=== PATIENT | male | born 1990 | race African-American/Black ===

== ENCOUNTER 2025-03-28 09:35 | Emergency (ER) | payer OTHER ==
[~2025-03-28] VITALS: Ht 190.5 cm; Wt 72.0 kg
[2025-03-28 10:19] LABS: BASO # 0.0 10^3/uL (0.0-0.2); BASO % 0.4 % (0.0-1.0); EOS # 0.0 10^3/uL (0.0-0.5); EOS % 0.6 % (0.0-3.0); LYMPH # 1.7 10^3/uL (1.5-5.0); LYMPH % 34.3 % (24.0-44.0); MONO # 0.4 10^3/uL (0.0-0.8); MONO % 8.5 % (2.0-8.0); NEUTROPHILS # 2.8 10^3/uL (1.5-8.5); NEUTROPHILS % 56.0 % (36.0-66.0); PLATELET COUNT, AUTOMATED 153 10^3/uL (150-450)
[2025-03-28] MEDS ORDERED: METO1TAB7 PO (10:21)
[2025-03-28] MEDS ORDERED: ELIQ5TAB PO (10:21)
[2025-03-28 10:42] LABS: INR 1.35
[2025-03-28 10:44] LABS: CK-MB VALUE MASS 4.5 NG/ML (<3.6)
[2025-03-28 10:45] LABS: ALT/SGPT 89.0 U/L (7.0-40); AST/SGOT 42.0 U/L (<34); CALCIUM LEVEL 8.7 MG/DL (8.5-10.1); CARBON DIOXIDE LEVEL 26.0 MMOL/L (20-31); CHLORIDE LEVEL 107.0 MMOL/L (98-107); CREATININE FOR GFR 1.16 MG/DL (0.70-1.30); GLOMERULAR FILTRATION RATE 85.3 (>60); MAGNESIUM LEVEL 2.0 MG/DL (1.8-2.4); POTASSIUM SERUM 4.5 MMOL/L (3.5-5.1); SODIUM LEVEL 141.0 MMOL/L (136-145)
[2025-03-28 10:46] LABS: CPK CREATINE PHOSPHOKINASE 190.0 U/L (46-171); MB/CK RELATIVE INDEX 2.36 (< OR =4)
[2025-03-28 10:47] LABS: FREE T4 0.99 NG/DL (0.89-1.76)
[2025-03-28] MEDS ORDERED: ISOVUE-370 76% 100 ML VIAL As Ordered ONE (11:01)
[2025-03-28 12:11] LABS: CK-MB VALUE MASS 3.7 NG/ML (<3.6)
[2025-03-28 12:12] LABS: CPK CREATINE PHOSPHOKINASE 183.0 U/L (46-171); MB/CK RELATIVE INDEX 2.02 (< OR =4)
[2025-03-28] MEDS: AMIODARONE HCL 150 MG in IV 1 EA IV SCH (13:17)
[2025-03-28] MEDS: ASPIRIN 81 MG CHEWABLE TABLET PO ONE (13:17)
[2025-03-28] MEDS: AMIODARONE HCL 360 MG in IV 1 EA IV SCH (13:38)
[2025-03-28] MEDS ORDERED: HOME MED LIST COMPLETE! XX SCH (13:40)
[2025-03-28 13:54] LABS: AMPHETAMINES LEVEL URINE NEGATIVE (NEGATIVE); BARBITURATES URINE NEGATIVE (NEGATIVE); CANNABINOIDS URINE NEGATIVE (NEGATIVE); COCAINE METABOLITE URINE NEGATIVE (NEGATIVE); METHADONE URINE NEGATIVE (NEGATIVE); OPIATES URINE NEGATIVE (NEGATIVE); PHENCYCLIDINE URINE NEGATIVE (NEGATIVE)
[2025-03-28 13:55] LABS: BENZODIAZEPINES URINE NEGATIVE (NEGATIVE)
[2025-03-28 13:58] LABS: KETONE, URINE AUTO RFX NEGATIVE (NEGATIVE); LEUKOCYTE ESTERASE UR AUTO RFX NEGATIVE (NEGATIVE); MUCUS, URINE RFX SMALL (NEGATIVE); NITRITE, URINE AUTO RFX NEGATIVE (NEGATIVE); RBC, URINE AUTO RFX 0 /HPF (0-3); SQUAM EPITHELIAL CELL UR AURFX 0 /HPF (0-6); WBC, URINE AUTO RFX 0 /HPF (0-3)
[2025-03-28 16:15] LABS: CK-MB VALUE MASS 4.0 NG/ML (<3.6)
[2025-03-28 16:16] LABS: CPK CREATINE PHOSPHOKINASE 173.0 U/L (46-171); MB/CK RELATIVE INDEX 2.31 (< OR =4)
[2025-03-28 17:12] VITALS: BP 114/87; TEMP 98.5; O2SAT 97
== END 2025-03-28 17:17 | disposition short-term general hospital (02) ==
LOC: M ED 09:35
DX: I24.9 Acute ischemic heart disease, unspecified (principal); I48.92 Unspecified atrial flutter; I50.22 Chronic systolic (congestive) heart failure; J91.8 Pleural effusion in other conditions classified elsewhere; I45.10 Unspecified right bundle-branch block; I11.0 Hypertensive heart disease with heart failure; Z79.01 Long term (current) use of anticoagulants; Z79.899 Other long term (current) drug therapy
CPT/HCPCS: 71045; 71275; 80047; 80048; 80076; 80307; 81001; 82550; 82553; 83605; 83690; 83735; 83880; 84439; 84443; 84484; 85025; 85610; 85730; 87040; 87486; 87581; 87633; 87798; 93005; 93041; 94760; 96365; 96366; 99285; J0282; Q9967